=== PATIENT | female | born 2000 | race Two or more races ===

== ENCOUNTER 2025-03-25 08:29 | Emergency (ER) | payer OTHER, SELFPAY ==
[~2025-03-25] VITALS: Ht 180.3 cm; Wt 66.2 kg
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
[2025-03-25 11:23] VITALS: BP 119/66; PULSE 65; RESP 17; TEMP 97.9; O2SAT 96
== END 2025-03-25 11:52 | disposition home or self-care (01) ==
LOC: ER 08:35
DX: S02.2XXA Fracture of nasal bones, initial encounter for closed fracture (principal); S60.012A Contusion of left thumb without damage to nail, initial encounter; S50.02XA Contusion of left elbow, initial encounter; S50.812A Abrasion of left forearm, initial encounter; H57.89 Other specified disorders of eye and adnexa; V89.2XXA Person injured in unspecified motor-vehicle accident, traffic, initial encounter; Y93.89 Activity, other specified; Y92.89 Other specified places as the place of occurrence of the external cause; Y99.8 Other external cause status
CPT/HCPCS: 70140; 73130

== ENCOUNTER 2025-09-07 11:11 | Emergency (ER) | payer SELFPAY, OTHER ==
[~2025-09-07] VITALS: Ht 175.3 cm; Wt 65.1 kg
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
[2025-09-07] MEDS ORDERED: NAPR-746 PO (12:55)
[2025-09-07 12:58] VITALS: BP 104/51; PULSE 80; RESP 18; TEMP 98.1; O2SAT 98
== END 2025-09-07 13:01 | disposition home or self-care (01) ==
LOC: ER 11:14
DX: S00.33XA Contusion of nose, initial encounter (principal); S60.221A Contusion of right hand, initial encounter; S60.511A Abrasion of right hand, initial encounter; V89.2XXA Person injured in unspecified motor-vehicle accident, traffic, initial encounter; Y93.89 Activity, other specified; Y92.410 Unspecified street and highway as the place of occurrence of the external cause; Y99.8 Other external cause status
CPT/HCPCS: 70160; 73130